=== PATIENT | male | born 1990 | race Caucasian/White ===

== ENCOUNTER 2023-07-02 12:18 | Emergency (ER) | payer OTHER ==
[~2023-07-02] VITALS: Ht 172.7 cm; Wt 63.5 kg
[2023-07-02] MEDS ORDERED: IOHEXOL 300 MG/ML 100 ML VIAL IV ONE (15:55)
[2023-07-02 16:07] LABS: BASO % 0.6 % (0.0-1.0); EOS % 0.2 % (1.0-4.0); HEMATOCRIT 46.7 % (42.0-52.0); LYMPH # 1.2 10*3/uL (1.3-4.4); LYMPH % 18.6 % (27.0-41.0); MEAN CORPUSCULAR HGB 30.9 pg (27.0-31.0); MEAN CORPUSCULAR HGB CONC 33.2 g/dl (33.0-37.0); MEAN PLATELET VOLUME 9.8 fl (9.6-12.3); MONO # 0.8 10*3/uL (0.1-1.0); MONO % 13.1 % (3.0-9.0); NEUT # 4.2 10*3/uL (2.3-7.9); NEUT % 67.3 % (47.0-73.0); PLATELET COUNT AUTOMATED 169 10*3/uL (130-400); RED BLOOD COUNT 5.02 10*6/uL (4.50-5.90); RED CELL DISTRI WIDTH 12.1 % (0-14.5); WHITE BLOOD COUNT 6.2 10*3/uL (4.8-10.8)
[2023-07-02 16:26] LABS: ALKALINE PHOSPHATASE 53 U/L (46-116); BUN 10 mg/dl (9-23); CHLORIDE 108 mmol/L (98-107); LIPASE 27 U/L (12-53); POTASSIUM 3.6 mmol/L (3.4-5.1); SGPT/ALT 39 U/L (5-49); TOTAL PROTEIN 7.1 gm/dL (6.0-8.0)
[2023-07-02 17:23] LABS: BILIRUBIN Negative (Negative); BLOOD Negative (Negative); CLARITY Clear (Clear); COLOR Yellow (Yellow); GLUCOSE Negative (Negative); KETONE 1+ (Negative); LEUKO ESTERASE Negative (Negative); NITRITE Negative (Negative); SPECIFIC GRAVITY >= 1.030 (1.001-1.030)
[2023-07-02 17:42] LABS: HYALINE CAST 0-2; MUCOUS 1+; RBC 0-2 rbc/hpf (0-2)
[2023-07-02] MEDS ORDERED: ONDANSETRON4 MG SL (17:58)
== END 2023-07-02 17:58 | disposition home or self-care (01) ==
LOC: ED 12:18
PROVIDERS: Nurse Practitioner
DX: B34.9 Viral infection, unspecified (principal); Z20.822 Contact with and (suspected) exposure to COVID-19; K52.9 Noninfective gastroenteritis and colitis, unspecified; R11.2 Nausea with vomiting, unspecified

== ENCOUNTER 2023-11-27 12:57 | Emergency (ER) | payer OTHER ==
[~2023-11-27] VITALS: Ht 172.7 cm; Wt 63.5 kg
[~2023-11-27 12:57] MED LIST: ONDANSETRON4 MG SL
[2023-11-27] MEDS ORDERED: Ketorolac Tromethamine 30 MG/ML VIAL IM ONE (13:25)
[2023-11-27] MEDS ORDERED: MELOXICAM5 MG PO (14:25)
== END 2023-11-27 14:49 | disposition home or self-care (01) ==
LOC: ED 12:57
DX: S93.402A Sprain of unspecified ligament of left ankle, initial encounter (principal); S23.3XXA Sprain of ligaments of thoracic spine, initial encounter; X50.1XXA Overexertion from prolonged static or awkward postures, initial encounter; Y93.44 Activity, trampolining; Y92.009 Unspecified place in unspecified non-institutional (private) residence as the place of occurrence of the external cause; Y99.8 Other external cause status

== ENCOUNTER → 2024-01-19 | Outpatient (CLI) | payer OTHER ==
[~2024-01-19] MED LIST changes: +MELOXICAM5 MG PO
== END ==
LOC: RAD 15:49
PROVIDERS: ATTEND Nurse Practitioner Family
DX: M54.50 Low back pain, unspecified (principal); M54.9 Dorsalgia, unspecified; M25.561 Pain in right knee

== ENCOUNTER 2024-07-04 08:01 | Emergency (ER) | payer SELFPAY ==
[~2024-07-04] VITALS: Ht 170.1 cm; Wt 68.0 kg
[2024-07-04] MEDS ORDERED: NAPROSYN500 MG PO (08:27)
[2024-07-04] MEDS ORDERED: METHOCARBAMOL500 M1 PO (08:27)
== END 2024-07-04 08:31 | disposition home or self-care (01) ==
LOC: ED 08:01
DX: M62.830 Muscle spasm of back (principal)

== ENCOUNTER → 2024-08-29 | Outpatient (CLI) | payer OTHER ==
[~2024-08-29] MED LIST changes: +METHOCARBAMOL500 M1 PO; +NAPROSYN500 MG PO
== END | disposition home or self-care (01) ==
LOC: RAD 11:45
PROVIDERS: ATTEND Internal Medicine
DX: M25.521 Pain in right elbow (principal)